=== PATIENT | male | born 1970 | race Caucasian/White ===

== ENCOUNTER → 2023-01-11 08:31 | Outpatient (CLI) | payer OTHER, SELFPAY ==
[2023-01-11 09:18] LABS: Hemoglobin A1C% w Est Avg Glu 5.8 % (4.0-6.0)
[2023-01-11 09:45] LABS: Alanine Aminotransferase 58 IU/L (<50); Albumin 4.5 g/dL (3.5-5.0); Albumin Globulin Ratio 1.7 (1.0-2.8); Alkaline Phosphatase 53 U/L (38-126); Aspartate Aminotransferase 33 IU/L (17-59); BUN Creatinine Ratio 18.9 (6-22); Bilirubin Total 0.5 mg/dL (0.2-1.3); Blood Urea Nitrogen 17 mg/dL (9-20); Calcium 9.9 mg/dL (8.4-10.2); Carbon Dioxide 28 mmol/L (22-32); Chloride 103 mmol/L (98-107); Cholesterol 146 mg/dL (140-199); Estimated Glomerular Filt Rate > 60 mL/min (>60); Globulin 2.6 g/dL (1.7-4.1); Glucose 105 mg/dL (70-100); HDL Cholesterol 37 mg/dL (40-60); HEMOLYSIS < 15 (0-50); LDL Cholesterol Calculated 86 mg/dL (<100); Potassium 4.4 mmol/L (3.4-5.1); Sodium 139 mmol/L (137-145); Total Protein 7.1 g/dL (6.3-8.2); Triglycerides 114 mg/dL (35-150)
[2023-01-13 15:37] LABS: HIV 1 & 2 Ab/Ag 4th Gen Combo NEGATIVE (NEGATIVE)
[2023-01-13 16:14] LABS: Hep C Virus Ab w/Reflex Quant NEGATIVE s/c (NEGATIVE)
== END ==
PROVIDERS: PCP Family Medicine; Referring Provider Family Medicine; Visit Provider Family Medicine
DX: Z12.5 Encounter for screening for malignant neoplasm of prostate (principal); Z11.59 Encounter for screening for other viral diseases; Z11.4 Encounter for screening for human immunodeficiency virus [HIV]; E78.00 Pure hypercholesterolemia, unspecified; I10 Essential (primary) hypertension
CPT/HCPCS: 36415; 80053; 80061; 83036; 84153; 86803; 87389

== ENCOUNTER → 2023-01-31 11:50 | Outpatient (CLI) | payer OTHER, SELFPAY | PROVIDERS: PCP Family Medicine; Visit Provider Family Medicine | DX: J02.9 Acute pharyngitis, unspecified (principal) | CPT/HCPCS: 87070 ==

== ENCOUNTER → 2023-01-31 14:28 | Outpatient (CLI) | payer OTHER, SELFPAY ==
[2023-01-31 15:36] LABS: Hemoglobin A1C% w Est Avg Glu 5.8 % (4.0-6.0)
== END ==
PROVIDERS: PCP Family Medicine; Referring Provider Family Medicine; Visit Provider Family Medicine
DX: R73.01 Impaired fasting glucose (principal); J02.9 Acute pharyngitis, unspecified
CPT/HCPCS: 36415; 83036; 87070

== ENCOUNTER 2023-06-30 12:56 | Day surgery (SDC) | payer OTHER, SELFPAY ==
--- NOTE | 2023-06-30 | PATH_ITS ---
[facility] Accession Number: [id number] No. of containers..01 Tissue . 01 Material submitted: . colon - ASCENDING POLYP . 01 Diagnosis: ASCENDING POLYP: Polypoid colonic mucosa with no neoplasm identified. . Specimen Comments: Additional step sections were examined. STO 07/08/20231416 Local . 01 Electronically signed: . Darren Mahan MD, Pathologist NPI- [id number] . 01 Gross description: . ASCENDING POLYP: Received in formalin is 1 fragment(s) of saha, soft tissue measuring 0.7 x 0.3 x 0.2 cm submitted entirely in 1 cassette(s) /YESENIA 07/08/20231416 Local . 01 Pathologist provided ICD-10: K63.5 . 01 CPT . 007249 Specimen Comment: A courtesy copy of this report has been sent to [phone] Performed at: 01 [facility] [address] [place] [address], [place], [place] [id number] MD Darren Mahan MD Phone: [phone]
[2023-06-30 13:15] VITALS: BP 142/91; PULSE 100; RESP 16; TEMP 36.3; O2SAT 96
--- NOTE | 2023-06-30 13:20 | PM.HP.1 ---
History of Present Illness History of Present Illness Date Patient Seen: 06/30/23 Time Patient Seen: 13:20 Chief complaint: Colonoscopy Narrative: Zane is a 52-year-old man who presents for colonoscopy. He has never had one before. No known family history of colon cancer. [facility] Medical History (Updated 06/30/23 @ 13:21 by Costa Aaron MD) IFG (impaired fasting glucose) Sleep apnea (~2012) Allergies PTSD (post-traumatic stress disorder) (~2011) Shoulder pain Foot pain (~2009) Chronic back pain Ankle pain (~2009) Chicken pox (~1974) Tinnitus High cholesterol (~2009) Hypertension (~2011) Basal cell carcinoma (~2009) Surgical History (Updated 01/10/23 @ 21:24 by Irene Tobin) Anesthesia History of circumcision (~1979) Family History (Updated 01/10/23 @ 21:28 by Irene Tobin) Father History of heart disease Mother Cancer Hypoglycemia Sister Diabetes mellitus Hyperlipidemia Hypertension Grandfather Cancer Grandmother Cancer Diabetes mellitus Hypertension Grandfather History of heart disease Stroke Prostate cancer Grandmother History of heart disease Hypertension Hyperlipidemia Social History Smoking Status: Never smoker Meds Home Medications and Allergies Home Medications Medication Instructions Recorded Confirmed Type atorvastatin 20 mg tablet (Lipitor) 20 mg PO BEDTIME cholesterol #90 01/11/23 06/30/23 Rx tabs hydrochlorothiazide 25 mg tablet 25 mg PO DAILY for blood pressure 01/11/23 06/30/23 Rx #90 tabs Allergies Allergy/AdvReac Type Severity Reaction Status Date / Time No Known Drug Allergies Allergy Verified 06/30/23 13:09 Exam Const General: healthy appearing Resp Effort & Inspection: normal respiratory effort Assessment & Plan Assessment and plan (1) Colon cancer screening: Status: Acute Plan We reviewed the risks and benefits of colonoscopy for colon cancer screening and he would like to proceed.
[2023-06-30] MEDS: LACTATED RINGERS 1,000 ML 42 ML IV (13:22)
[2023-06-30 15:02] VITALS: BP 104/68; PULSE 77; RESP 20; TEMP 36.3; O2SAT 95
--- NOTE | 2023-06-30 15:04 | PM.OP.COLON ---
Operative Date/Time/Diagnoses Date of procedure: 06/30/23 Time of procedure: 15:04 Pre-op diagnosis: Colon cancer screening Post-op diagnosis: same Procedure & Clinicians Study performed: Colonoscopy Same procedure as scheduled: Yes Surgeon: Costa Aaron Procedure Notes Procedure in detail: Surgeon: Costa Aaron MD Anesthesia: Joan Fischer DO Procedure: The patient was brought to the endoscopy suite, placed in left lateral decubitus position. The patient was connected to monitoring devices. A time-out was performed. Sedation was administered. Once the patient was adequately sedated, a digital rectal exam was performed and was normal. The scope was then inserted and advanced to the cecum where the appendiceal orifice was identified and photographed. The scope was then slowly withdrawn over greater than 6 minutes. The mucosa was thoroughly inspected. There was a 5 mm polyp in the ascending colon removed with a cold snare. The scope was retroflexed in the rectum. No other abnormalities were seen. The scope was straightened and removed. The patient was awakened and brought to recovery. Scope withdrawal time: 7 minutes Sedation time: 16 minutes EBL: 3 mL Findings: 5 mm polyp in the ascending colon Post-procedure Disposition: PACU
[2023-06-30 15:07] VITALS: BP 109/70; PULSE 77; RESP 19; O2SAT 95
[2023-06-30 15:17] VITALS: BP 102/72; PULSE 77; RESP 19; O2SAT 95
[2023-06-30 15:25] VITALS: BP 112/73; PULSE 71; RESP 11; O2SAT 96
[2023-06-30 15:26] VITALS: BP 116/79; PULSE 73; RESP 11; O2SAT 97
== END 2023-06-30 15:43 | disposition home or self-care (01) ==
PROVIDERS: PCP Family Medicine; Referring Provider Surgery; Visit Provider Surgery
PROC: 0DJD8ZZ Inspection of Lower Intestinal Tract, Via Natural or Artificial Opening Endoscopic (ICD-10-PCS; CPT 45378; principal; 2023-06-30 13:45)
DX: Z12.11 Encounter for screening for malignant neoplasm of colon (principal); K63.5 Polyp of colon
CPT/HCPCS: 45385; J2704

== ENCOUNTER → 2023-09-05 08:25 | Outpatient (CLI) | payer OTHER, SELFPAY ==
[2023-09-05 09:26] LABS: Hemoglobin A1C% w Est Avg Glu 5.6 % (4.0-6.0)
== END ==
PROVIDERS: PCP Family Medicine; Referring Provider Family Medicine; Visit Provider Family Medicine
DX: R73.01 Impaired fasting glucose (principal)
CPT/HCPCS: 36415; 83036

== ENCOUNTER → 2024-03-06 06:59 | Outpatient (CLI) | payer OTHER, SELFPAY ==
[2024-03-06 08:24] LABS: Hemoglobin A1C% w Est Avg Glu 5.6 % (4.0-6.0)
[2024-03-06 08:32] LABS: Alanine Aminotransferase 50 IU/L (<50); Albumin 4.3 g/dL (3.5-5.0); Albumin Globulin Ratio 1.9 (1.0-2.8); Alkaline Phosphatase 61 U/L (38-126); Aspartate Aminotransferase 36 IU/L (17-59); BUN Creatinine Ratio 17.9 (6-22); Bilirubin Total 0.7 mg/dL (0.2-1.3); Blood Urea Nitrogen 19 mg/dL (9-20); Calcium 9.4 mg/dL (8.4-10.2); Carbon Dioxide 26 mmol/L (22-32); Chloride 106 mmol/L (98-107); Cholesterol 153 mg/dL (140-199); Estimated Glomerular Filt Rate > 60 mL/min (>60); Globulin 2.3 g/dL (1.7-4.1); Glucose 136 mg/dL (70-100); HDL Cholesterol 39 mg/dL (40-60); HEMOLYSIS < 15 (0-50); LDL Cholesterol Calculated 97 mg/dL (<100); Potassium 3.6 mmol/L (3.4-5.1); Sodium 138 mmol/L (137-145); Total Protein 6.6 g/dL (6.3-8.2); Triglycerides 84 mg/dL (35-150)
[2024-03-06 08:57] LABS: Prostate Specific Antigen Scrn 0.645 ng/mL (0.1-4.0)
== END ==
PROVIDERS: PCP Family Medicine; Referring Provider Family Medicine; Visit Provider Family Medicine
DX: Z12.5 Encounter for screening for malignant neoplasm of prostate (principal); R73.01 Impaired fasting glucose; E78.00 Pure hypercholesterolemia, unspecified; I10 Essential (primary) hypertension
CPT/HCPCS: 36415; 80053; 80061; 83036; G0103

== ENCOUNTER → 2024-09-18 06:56 | Outpatient (CLI) | payer OTHER, SELFPAY ==
[2024-09-18 07:58] LABS: Alanine Aminotransferase 49 IU/L (<50); Albumin 4.6 g/dL (3.5-5.0); Albumin Globulin Ratio 1.9 (1.0-2.8); Alkaline Phosphatase 57 U/L (38-126); Blood Urea Nitrogen 22 mg/dL (9-20); Calcium 9.5 mg/dL (8.4-10.2); Carbon Dioxide 22 mmol/L (22-32); Chloride 106 mmol/L (98-107); Estimated Glomerular Filt Rate > 60 mL/min (>60); Globulin 2.4 g/dL (1.7-4.1); Glucose 123 mg/dL (70-99); HEMOLYSIS < 15 (0-50); Potassium 4.0 mmol/L (3.4-5.1); Sodium 138 mmol/L (137-145); Total Protein 7.0 g/dL (6.3-8.2)
[2024-09-18 08:00] LABS: Hemoglobin A1C% w Est Avg Glu 5.5 % (4.0-6.0)
== END ==
PROVIDERS: PCP Family Medicine; Referring Provider Family Medicine; Visit Provider Family Medicine
DX: Z00.00 Encounter for general adult medical examination without abnormal findings (principal); R73.01 Impaired fasting glucose; E78.00 Pure hypercholesterolemia, unspecified; I10 Essential (primary) hypertension
CPT/HCPCS: 36415; 80053; 83036

== ENCOUNTER → 2024-10-07 10:46 | Outpatient (CLI) | payer OTHER, SELFPAY ==
--- NOTE | 2024-10-07 10:47 | DI.MRI.S_ITS ---
PROCEDURE: MR SHOULDER LT WO CON INDICATIONS: Left arm weakness, r/o RCT TECHNIQUE: Noncontrast oblique coronal T2 fast spin echo with fat saturation, oblique sagittal T1 spin echo and T2 fast spin echo with fat saturation, axial T1 spin echo and T2 fast spin echo with fat saturation through the shoulder. COMPARISON: [facility], CR, XR SHOULDER LT 2+ VIEWS, 09/20/2024, 8:20. FINDINGS: Image quality: Excellent. Rotator cuff: The supraspinatus, and infraspinatus are unremarkable. The teres minor is unremarkable. Mild tendinosis of the subscapularis, without tear. No muscle edema or fatty atrophy. Bones and bursae: No significant degenerative changes of the acromioclavicular joint. Type 2 acromion. No os acromiale. Trace subacromial/subdeltoid bursitis. Minimal subchondral cystic changes at the posterior greater tuberosity, reactive. No acute fracture. No focal chondral defect of the glenohumeral articulation. There is a 9 mm T2 heterogeneous lesion containing fat in the spine of the scapula (09:24), nonspecific but favors benign etiology. Capsule and soft tissues: Superior labral tear, extending anteriorly to the anterior superior labrum. No paralabral cyst. Mild tenosynovitis of the extra-articular biceps tendon. The intra-articular biceps tendon is unremarkable. No significant glenohumeral effusion. IMPRESSION: 1. Mild tendinosis of the subscapularis, without tear. 2. Labral tear. 3. Mild tenosynovitis of the extra-articular biceps tendon. 4. 9 mm lesion in the spine of the scapula, nonspecific but favors benign etiology. Dictated by: Maddy Puri M.D. on 10/08/2024 at 17:31 Approved by: Maddy Puri M.D. on 10/08/2024 at 17:39
== END ==
LOC: MRI 10:46
PROVIDERS: PCP Family Medicine; Referring Provider Family Medicine; Visit Provider Physician Assistant Surgical
DX: S43.492A Other sprain of left shoulder joint, initial encounter (principal); R29.898 Other symptoms and signs involving the musculoskeletal system; M89.9 Disorder of bone, unspecified
CPT/HCPCS: 73221

== ENCOUNTER → 2025-03-11 06:54 | Outpatient (CLI) | payer OTHER, SELFPAY ==
[2025-03-11 08:05] LABS: Hemoglobin A1C% w Est Avg Glu 5.5 % (4.0-6.0)
[2025-03-11 08:19] LABS: Blood Urea Nitrogen 14 mg/dL (9-20); Calcium 9.2 mg/dL (8.4-10.2); Carbon Dioxide 24 mmol/L (22-32); Chloride 106 mmol/L (98-107); Cholesterol 144 mg/dL (140-199); Estimated Glomerular Filt Rate > 60 mL/min (>60); Glucose 107 mg/dL (70-99); HDL Cholesterol 35 mg/dL (40-60); HEMOLYSIS < 15 (0-50); Potassium 4.1 mmol/L (3.4-5.1); Sodium 139 mmol/L (137-145); Triglycerides 100 mg/dL (35-150)
== END ==
PROVIDERS: PCP Family Medicine; Referring Provider Family Medicine; Visit Provider Family Medicine
DX: Z12.5 Encounter for screening for malignant neoplasm of prostate (principal); I10 Essential (primary) hypertension; E78.00 Pure hypercholesterolemia, unspecified; R73.01 Impaired fasting glucose
CPT/HCPCS: 36415; 80048; 80061; 83036; G0103